=== PATIENT | male | born 1965 | race Asian ===

== ENCOUNTER 2020-03-24 08:34 | Outpatient (REF) | payer BC, SELFPAY ==
[2020-03-24 11:19] LABS: MANUAL DIFF FLAG NO
[2020-03-24 11:31] LABS: Basophils Percent Auto 0.5 % (0-2); Eosinophils Absolute Auto 0.1 X10*3/uL (0.0-0.4); Eosinophils Percent Auto 3.1 % (0-4); Hematocrit 47.6 % (42-52); Hemoglobin 15.1 g/dl (14.0-18.0); Imm Gran Abs Auto 0.01 X10*3/uL (0.00-0.03); Imm Gran Pct Auto 0.3 % (0.0-0.4); Lymphocytes Absolute Auto 1.1 X10*3/uL (1.2-4.9); Lymphocytes Percent Auto 27.9 % (20-40); Mean Corpuscular HGB Conc 31.7 g/dl (31.0-36.0); Mean Corpuscular Hemoglobin 26.7 pg (27.0-33.0); Mean Corpuscular Volume 84.2 fL (80-98); Mean Platelet Volume 9.5 fL (9.4-12.4); Monocytes Absolute Auto 0.3 X10*3/uL (0.1-1.2); Monocytes Percent Auto 8.2 % (2-11); Neutrophils Absolute Auto 2.3 X10*3/uL (2.0-8.3); Platelet Count 174 X10*3/uL (160-400); Red Blood Count 5.65 X10*6/uL (4.60-5.80); Red Cell Distribution Width 14.3 % (11.0-16.0); White Blood Count 3.9 X10*3/uL (4.8-10.8)
[2020-03-24 11:50] LABS: Glucose Urine UA NEG (NEG); Leukocyte Esterase Urine NEG (NEG); Nitrite Urine NEG (NEG); Specific Gravity - Urine 1.015 (1.005-1.025); Urine Blood TRACE (NEG); Urine Ketones NEG (NEG); Urine Protein NEG (NEG-TRACE)
[2020-03-24 11:52] LABS: Appearance Urine CLEAR; Color Urine YELLOW
[2020-03-24 11:57] LABS: Alanine Aminotransferase 25 U/L (0-40); Albumin Level 4.2 g/dL (3.5-5.0); Alkaline Phosphatase 53 U/L (39-117); Anion Gap 14 (12-20); Aspartate Amino Transferase 26 U/L (5-37); Bilirubin Total 0.7 mg/dL (0.0-1.0); Blood Urea Nitrogen 16 mg/dL (9-16); Calcium 9.1 mg/dL (8.4-10.2); Carbon Dioxide 30 mmol/L (22-29); Chloride 100 mmol/L (96-108); Cholesterol 179 mg/dL; Estimated Glomerular Filt Rate 46; Glucose Fasting 80 mg/dL (60-99); HDL Cholesterol 54 mg/dL; LDL Cholesterol Calculated 100 mg/dl; Potassium 4.3 mmol/l (3.3-5.1); Sodium 140 mmol/L (135-145); Triglycerides 125 mg/dL
[2020-03-24 12:07] LABS: RBC Urine 0-2 /HPF (0); WBC Urine 0 /HPF (0-4)
[2020-03-24 12:35] LABS: Prostate Specific Antigen 1.01 ng/mL (<0.05-4.0)
== END 2020-03-24 08:35 | disposition home or self-care (01) ==
LOC: HO.HMGCLDS 08:34
PROVIDERS: PCP Internal Medicine; Visit Provider Internal Medicine
DX: E78.00 Pure hypercholesterolemia, unspecified (principal); Z00.00 Encounter for general adult medical examination without abnormal findings; N28.9 Disorder of kidney and ureter, unspecified
CPT/HCPCS: 36415; 80053; 80061; 81001; 84153; 85025

== ENCOUNTER 2020-09-30 08:48 | Day surgery (SDC) | payer BC, SELFPAY ==
[2020-09-26 10:17] VITALS: BMI 22.8
--- NOTE | 2020-09-28 13:13 | HO.ANESPROP2 ---
Documented by User: Linh Graham 09/28/20 13:14 HPI - Anesthesia Eval Consult details Narrative: 54yo M for Colonoscopy PMFSH Past Medical History Medical History No significant past medical history Surgical History Surgical History Hx of Achilles tendon repair Hx of colonoscopy Hx of hand surgery Social History Social History Smoking Status: Former smoker Use of substances other than those prescribed or required for medical reasons: No Are you DNR?: No Advance Directives: No Advance Directives Information Provided: Yes Meds Allergies Allergy/AdvReac Type Severity Reaction Status Date / Time No Known Allergies Allergy Verified 09/30/20 08:55 Home Medications Medication Instructions Recorded Confirmed Last Taken Type multivitamin 1 tab PO DAILY 09/26/20 09/26/20 Unknown History Exam Exam Date and Time: September 28, 2020 1313 Height,Weight and Vital Signs: Height 5 ft 9 in Weight 70.307 kg Assessment and Plan Assessment Anesthesia Assessment: Chart Reviewed Documented by User: Negrita Natarajan 09/30/20 09:44 PMFSH Past Medical History Medical History No significant past medical history Surgical History Surgical History Hx of Achilles tendon repair Hx of colonoscopy Hx of hand surgery Social History Social History Smoking Status: Former smoker Use of substances other than those prescribed or required for medical reasons: No Are you DNR?: No Advance Directives: No Advance Directives Information Provided: Yes Meds Allergies Allergy/AdvReac Type Severity Reaction Status Date / Time No Known Allergies Allergy Verified 09/30/20 08:55 Home Medications Medication Instructions Recorded Confirmed Last Taken Type multivitamin 1 tab PO DAILY 09/26/20 09/26/20 Unknown History Exam Airway Mallampati Class: II TM Dist: >3cm Neck ROM: Full Assessment and Plan Assessment Anesthesia Assessment: Anesthesia Plan Discussed and Chart Reviewed Final Anesthetic Review NPO: Yes ASA Class: I Final Preanesthetic Review: No Changes in Pt Med Stat, Meds/Allgs Chart Reviewed, Consent Obtained/Reviewed and Anes Risks/Benef Reviewed Patient Risk: Low Procedure Risk: Low Assessment/Block/Sedation in SS: Assess/Block/Sedation-SS Anesthetic Plan Anesthetic Plan: MAC: Disposition: Standard PACU
[2020-09-30 09:18] VITALS: BP 132/84; PULSE 69; RESP 18; TEMP 36.2; O2SAT 97
[2020-09-30] MEDS: Lactated Ringers 1,000 ML 100 ML IVCONT (09:33)
[2020-09-30 10:52] VITALS: BP 90/51; PULSE 66; RESP 16; TEMP 36.2; O2SAT 98
--- NOTE | 2020-09-30 10:55 | P.BOP_ITS ---
Brief Operative Note Date of Service: 09/30/20 Pre-op diagnosis: Screening Post-op diagnosis: other (Prominent ICV, R/O polyp) Procedure: Colonoscopy to cecum and TI with biopsies Surgeon: Hernandez Rossi Anesthesia: MAC Was an Local Delivery Truck Driver used for this Procedure?: No Estimated blood loss (mL): 4.0 Pathology: other (A. Ileocecal valve, R/O polyp) Condition: stable Disposition: PACU
[2020-09-30 11:07] VITALS: BP 93/48; PULSE 55; RESP 16; O2SAT 96
--- NOTE | 2020-09-30 11:07 | OP_ITS ---
SURGEON: Hernandez Rossi MD INDICATIONS: The patient presents for evaluation of personal history of tubular adenomas of the colon and colorectal cancer screening. Full consent has been obtained from him for this, including risks of bleeding and perforation. PREOPERATIVE DIAGNOSIS: POSTOPERATIVE DIAGNOSIS: PROCEDURE PERFORMED: Colonoscopy to the cecum and terminal ileum with biopsies. ESTIMATED BLOOD LOSS: COMPLICATIONS: ANESTHESIA: Monitored anesthesia care. ASSISTANTS: SPECIMENS: PREOPERATIVE DIAGNOSES: Personal history of tubular adenoma of the colon and colorectal cancer screening. POSTOPERATIVE DIAGNOSES: Personal history of tubular adenoma of the colon and colorectal cancer screening, rule out ileocecal valve polyp, mild sigmoid diverticulosis, small internal hemorrhoids. DESCRIPTION OF PROCEDURE: The patient was placed in the left lateral decubitus position. The digital rectal exam revealed no abnormalities. The Olympus video pediatric colonoscope was entered into the rectum and advanced easily to the cecum. Once in the cecum, I did identify normal-appearing cecal pouch with appendiceal orifice. The entire cecum was well visualized and appeared normal. The ileocecal valve appeared somewhat prominent with some prolapsing small bowel mucosa. Overall, I felt this looked normal, but I did obtain some biopsies to rule out any component of adenomatous tissue. The terminal ileum was cannulated and appeared normal. The scope was withdrawn back in the colon. The scope was then slowly withdrawn assessing all mucosal surfaces carefully. Preparation was excellent. I did not visualize any sign of polyps, colitis, nor angiodysplasia. There was a mild amount of sigmoid diverticulosis. In the rectum, scope was retroflexed visualizing internal hemorrhoids, but no other pathology. The rectal mucosa appeared normal. The scope was straightened out and withdrawn from the patient. He tolerated the procedure well and was returned to the recovery area in stable condition. IMPRESSION: 1. Mild sigmoid diverticulosis. 2. Internal hemorrhoids. PLAN: The results of the biopsy will be checked. I would recommend a repeat colonoscopy in 5 years for further screening and surveillance. He will otherwise see me on a p.r.n. basis. MD BERNARDINO Buitrago/SARAH / [id number] MTDD
[2020-09-30 11:20] VITALS: BP 108/64; PULSE 70; RESP 16; O2SAT 99
== END 2020-09-30 12:15 | disposition home or self-care (01) ==
PROVIDERS: PCP Internal Medicine; Visit Provider Internal Medicine
PROC: 0DJD8ZZ Inspection of Lower Intestinal Tract, Via Natural or Artificial Opening Endoscopic (ICD-10-PCS; CPT 45378; principal; 2020-09-30 10:10)
DX: Z12.11 Encounter for screening for malignant neoplasm of colon (principal); Z86.010 Personal history of colon polyps; K57.30 Diverticulosis of large intestine without perforation or abscess without bleeding; K64.8 Other hemorrhoids
CPT/HCPCS: 45380; 88305

== ENCOUNTER 2020-11-03 15:27 | Outpatient (REF) | payer BC, SELFPAY ==
--- NOTE | ~2020-11-03 | US_ITS ---
EXAMINATION: US RETROPERITONEAL COMPLETE (RENAL) CLINICAL INFORMATION: Chronic kidney disease. COMPARISON: None TECHNIQUE: Real-time imaging of the kidneys and bladder. FINDINGS: RIGHT KIDNEY: 9.7 x 5.0 x 5.3 cm (SAG x AP x TRV). The kidney is normal in size, contour, and echogenicity. Renal cortical thickness is normal. No calculi or focal parenchymal lesions. No hydronephrosis. LEFT KIDNEY: 10.0 x 4.4 x 4.8 cm (SAG x AP x TRV). The kidney is normal in size, contour, and echogenicity. Renal cortical thickness is normal. No calculi or focal parenchymal lesions. No hydronephrosis. BLADDER: Well distended and normal. Bilateral ureteral jets are demonstrated. Prevoid bladder volume is 230.2 mL. Postvoid bladder volume is 15.6 mL. The prostate gland measures 5 x 4.5 2.5 cm, volume 31 mL. The liver is echogenic. US/US retroperitoneal comp IMPRESSION: Normal renal and bladder ultrasound..
== END 2020-11-03 15:28 | disposition home or self-care (01) ==
LOC: HO.US 15:27
PROVIDERS: Visit Provider Internal Medicine Hypertension Specialist
DX: N18.9 Chronic kidney disease, unspecified (principal)
CPT/HCPCS: 76770; 76775

== ENCOUNTER 2020-11-11 08:40 | Outpatient (REF) | payer BC, SELFPAY ==
[2020-11-11 09:31] LABS: MANUAL DIFF FLAG NO
[2020-11-11 09:36] LABS: Basophils Percent Auto 0.4 % (0-2); Eosinophils Absolute Auto 0.1 X10*3/uL (0.0-0.4); Hematocrit 46.6 % (42-52); Imm Gran Abs Auto 0.02 X10*3/uL (0.00-0.03); Imm Gran Pct Auto 0.4 % (0.0-0.4); Lymphocytes Absolute Auto 1.2 X10*3/uL (1.2-4.9); Lymphocytes Percent Auto 23.6 % (20-40); Mean Corpuscular HGB Conc 32.2 g/dl (31.0-36.0); Mean Corpuscular Hemoglobin 26.5 pg (27.0-33.0); Mean Corpuscular Volume 82.3 fL (80-98); Mean Platelet Volume 9.4 fL (9.4-12.4); Monocytes Absolute Auto 0.4 X10*3/uL (0.1-1.2); Monocytes Percent Auto 7.2 % (2-11); Neutrophils Absolute Auto 3.3 X10*3/uL (2.0-8.3); Neutrophils Percent Auto 66.4 % (45-73); Platelet Count 175 X10*3/uL (160-400); Red Blood Count 5.66 X10*6/uL (4.60-5.80); Red Cell Distribution Width 14.2 % (11.0-16.0)
[2020-11-11 10:14] LABS: Alanine Aminotransferase 23 U/L (0-40); Albumin Level 4.3 g/dL (3.5-5.0); Alkaline Phosphatase 60 U/L (39-117); Anion Gap 12 (12-20); Aspartate Amino Transferase 19 U/L (5-37); Bilirubin Total 0.4 mg/dL (0.0-1.0); Blood Urea Nitrogen 20 mg/dL (9-16); Carbon Dioxide 27 mmol/L (22-29); Chloride 105 mmol/L (96-108); Estimated Glomerular Filt Rate 51; Glucose Random 101 mg/dL (60-115); Potassium 4.2 mmol/L (3.3-5.1); Sodium 140 mmol/L (135-145); Total Protein 7.5 g/dL (6.5-8.0)
[2020-11-11 10:16] LABS: Creatinine Urine 154.83 mg/dL; Total Protein Urine Random < 7 mg/dL (<12)
[2020-11-11 10:27] LABS: Vitamin D 25-OH Total 35.8 ng/mL (>30)
[2020-11-11 11:14] LABS: Creatinine, mg/dL 144.32
[2020-11-11 11:16] LABS: Creatinine, mg/dL 147.45; Protein mg/dL < 7 mg/dL
[2020-11-11 13:14] LABS: Creatinine, 24Hr Urine 1.9 G/Day (1.0-2.0); Protein 24 Hr Urine < 91 mg/Day (<150); Total Volume 24 Hour Urine 1300 mL
[2020-11-11 13:15] LABS: Creatinine (CrCl) 1.46 mg/dL (0.5-1.4); Creatinine Clearance 91.1 mL/min (85-125); Creatinine, 24Hr Urine 1.9 G/Day (1.0-2.0); Total Volume 24 Hour Urine 1300 mL
[2020-11-15 13:37] LABS: Calcium (PTHI) 9.9 mg/dL (8.6-10.3); PTHI 24 pg/mL (14-64)
== END 2020-11-11 08:41 | disposition home or self-care (01) ==
LOC: HO.LAB 08:40
PROVIDERS: PCP Internal Medicine; Visit Provider Internal Medicine Hypertension Specialist
DX: N18.9 Chronic kidney disease, unspecified (principal)
CPT/HCPCS: 36415; 80053; 82306; 82570; 82575; 83970; 84156; 85025

== ENCOUNTER 2021-07-28 09:09 | Outpatient (REF) | payer BC, SELFPAY ==
[2021-07-28 10:26] LABS: Anion Gap 13 (12-20); Blood Urea Nitrogen 18 mg/dL (9-16); Calcium 10.2 mg/dL (8.4-10.2); Carbon Dioxide 29 mmol/L (22-29); Chloride 102 mmol/L (96-108); Estimated Glomerular Filt Rate 46; Potassium 4.6 mmol/L (3.3-5.1); Sodium 139 mmol/L (135-145)
[2021-07-28 10:58] LABS: Appearance Urine CLEAR; Color Urine YELLOW; Glucose Urine UA NEG (NEG); Leukocyte Esterase Urine NEG (NEG); Nitrite Urine NEG (NEG); Urine Blood NEG (NEG); Urine Ketones NEG (NEG); Urine Protein NEG (NEG-TRACE)
[2021-07-28 11:32] LABS: Creatinine Urine 137.32 mg/dL; Protein/Creatinine Ratio, Ur 0.06 (<0.2); Total Protein Urine Random 8 mg/dL (<12)
== END 2021-07-28 09:10 | disposition home or self-care (01) ==
LOC: HO.LAB 09:09
PROVIDERS: PCP Internal Medicine; Visit Provider Internal Medicine Hypertension Specialist
DX: N18.9 Chronic kidney disease, unspecified (principal)
CPT/HCPCS: 36415; 80051; 81003; 82310; 82565; 84156; 84520

== ENCOUNTER 2021-12-18 07:27 | Outpatient (REF) | payer BC, SELFPAY ==
[2021-12-18 07:43] LABS: MANUAL DIFF FLAG NO
[2021-12-18 08:09] LABS: Basophils Percent Auto 0.4 % (0-2); Eosinophils Absolute Auto 0.2 X10*3/uL (0.0-0.4); Eosinophils Percent Auto 3.1 % (0-4); Hematocrit 46.7 % (42.0-52.0); Hemoglobin 15.2 g/dl (14.0-18.0); Imm Gran Abs Auto 0.01 X10*3/uL (0.00-0.03); Imm Gran Pct Auto 0.2 % (0.0-0.4); Lymphocytes Absolute Auto 1.2 X10*3/uL (1.2-4.9); Lymphocytes Percent Auto 24.5 % (20-40); Mean Corpuscular HGB Conc 32.5 g/dl (31.0-36.0); Mean Corpuscular Hemoglobin 26.8 pg (27.0-33.0); Mean Corpuscular Volume 82.2 fL (80.0-98.0); Mean Platelet Volume 9.5 fL (9.4-12.4); Monocytes Absolute Auto 0.4 X10*3/uL (0.1-1.2); Monocytes Percent Auto 7.4 % (2-11); Neutrophils Absolute Auto 3.2 x10*3/uL (2.0-8.3); Neutrophils Percent Auto 64.4 % (45-73); Platelet Count 175 X10*3/uL (160-400); Red Blood Count 5.68 X10*6/uL (4.60-5.80); Red Cell Distribution Width 14.5 % (11.0-16.0); White Blood Count 4.9 X10*3/uL (4.8-10.8)
[2021-12-18 08:51] LABS: Alanine Aminotransferase 15 U/L (0-40); Albumin Level 4.5 g/dL (3.5-5.0); Alkaline Phosphatase 52 U/L (39-117); Anion Gap 13 (12-20); Aspartate Amino Transferase 17 U/L (5-37); Bilirubin Total 0.5 mg/dL (0.0-1.0); Blood Urea Nitrogen 27 mg/dL (9-16); Calcium 9.7 mg/dL (8.4-10.2); Carbon Dioxide 29 mmol/L (22-29); Chloride 101 mmol/L (96-108); Cholesterol 240 mg/dL; Estimated Glomerular Filt Rate 42; Glucose Fasting 90 mg/dL (60-99); HDL Cholesterol 58 mg/dL; LDL Cholesterol Calculated 145 mg/dl; Potassium 4.5 mmol/L (3.3-5.1); Sodium 138 mmol/L (135-145); Total Protein 7.3 g/dL (6.5-8.0); Triglycerides 188 mg/dL
[2021-12-18 09:02] LABS: Prostate Specific Antigen 1.27 ng/mL (<0.05-4.0); Thyroid Stimulating Hormone 1.67 uIU/mL (0.32-4.0); Vitamin D 25-OH Total 39.6 ng/mL (>30)
== END 2021-12-18 07:28 | disposition home or self-care (01) ==
LOC: HO.LAB 07:27
PROVIDERS: PCP Internal Medicine; Visit Provider Internal Medicine
DX: Z00.00 Encounter for general adult medical examination without abnormal findings (principal); Z12.5 Encounter for screening for malignant neoplasm of prostate; N28.9 Disorder of kidney and ureter, unspecified; E78.00 Pure hypercholesterolemia, unspecified; J45.20 Mild intermittent asthma, uncomplicated
CPT/HCPCS: 36415; 80053; 80061; 82306; 84153; 84443; 85025

== ENCOUNTER 2022-04-28 07:04 | Outpatient (REF) | payer BC, SELFPAY ==
[2022-04-28 07:52] LABS: Anion Gap 11 (12-20); Blood Urea Nitrogen 21 mg/dL (9-16); Carbon Dioxide 30 mmol/L (22-29); Chloride 103 mmol/L (96-108); Estimated Glomerular Filt Rate 49; Glucose Random 99 mg/dL (60-115); Potassium 4.3 mmol/L (3.3-5.1); Sodium 140 mmol/L (135-145)
[2022-04-28 09:35] LABS: Creatinine Urine 158.35 mg/dL; Protein/Creatinine Ratio, Ur 0.06 (<0.2); Total Protein Urine Random 9 mg/dL (<12)
== END 2022-04-28 07:05 | disposition home or self-care (01) ==
LOC: HO.LAB 07:04
PROVIDERS: PCP Internal Medicine; Visit Provider Internal Medicine Hypertension Specialist
DX: R79.89 Other specified abnormal findings of blood chemistry (principal)
CPT/HCPCS: 36415; 80048; 84156

== ENCOUNTER 2022-11-03 07:14 | Outpatient (REF) | payer BC, SELFPAY ==
[2022-11-03 07:38] LABS: MANUAL DIFF FLAG NO
[2022-11-03 07:51] LABS: Basophils Percent Auto 0.5 % (0-2); Eosinophils Absolute Auto 0.1 X10*3/uL (0.0-0.4); Hematocrit 44.5 % (42.0-52.0); Hemoglobin 14.3 g/dl (14.0-18.0); Imm Gran Abs Auto 0.01 X10*3/uL (0.00-0.03); Imm Gran Pct Auto 0.2 % (0.0-0.4); Lymphocytes Absolute Auto 1.3 X10*3/uL (1.2-4.9); Mean Corpuscular HGB Conc 32.1 g/dl (31.0-36.0); Mean Corpuscular Hemoglobin 26.8 pg (27.0-33.0); Mean Corpuscular Volume 83.5 fL (80.0-98.0); Mean Platelet Volume 9.3 fL (9.4-12.4); Monocytes Absolute Auto 0.3 X10*3/uL (0.1-1.2); Monocytes Percent Auto 7.9 % (2-11); Neutrophils Absolute Auto 2.5 x10*3/uL (2.0-8.3); Neutrophils Percent Auto 58.4 % (45-73); Platelet Count 152 X10*3/uL (160-400); Red Blood Count 5.33 X10*6/uL (4.60-5.80); Red Cell Distribution Width 14.6 % (11.0-16.0); White Blood Count 4.3 X10*3/uL (4.8-10.8)
[2022-11-03 08:25] LABS: Alanine Aminotransferase 16 U/L (0-40); Albumin Level 4.1 g/dL (3.5-5.0); Alkaline Phosphatase 47 U/L (39-117); Anion Gap 12 (12-20); Aspartate Amino Transferase 24 U/L (5-37); Bilirubin Total 0.7 mg/dL (0.0-1.0); Blood Urea Nitrogen 16 mg/dL (9-16); Calcium 9.8 mg/dL (8.4-10.2); Carbon Dioxide 29 mmol/L (22-29); Chloride 103 mmol/L (96-108); Cholesterol 189 mg/dL; Estimated Glomerular Filt Rate 48; Glucose Fasting 92 mg/dL (60-99); HDL Cholesterol 62 mg/dL; LDL Cholesterol Calculated 103 mg/dl; Potassium 4.1 mmol/L (3.3-5.1); Sodium 140 mmol/L (135-145); Total Protein 6.7 g/dL (6.5-8.0); Triglycerides 121 mg/dL
[2022-11-03 08:37] LABS: PSA,Total (Free>4and<10) 1.44 ng/mL (0.00-4.00)
[2022-11-03 08:44] LABS: Thyroid Stimulating Hormone 1.53 uIU/mL (0.32-4.0)
[2022-11-03 09:07] LABS: Appearance Urine Clear; Color Urine Yellow; Glucose Urine UA Negative (Negative); Leukocyte Esterase Urine Negative (Negative); Nitrite Urine Negative (Negative); PH 5.5 (5.0-9.0); Urine Blood Negative (Negative); Urine Ketones Negative (Negative); Urine Protein Negative (Neg-Trace)
== END 2022-11-03 07:15 | disposition home or self-care (01) ==
LOC: HO.LAB 07:14
PROVIDERS: PCP Internal Medicine; Visit Provider Internal Medicine
DX: Z00.00 Encounter for general adult medical examination without abnormal findings (principal); Z12.5 Encounter for screening for malignant neoplasm of prostate; E78.00 Pure hypercholesterolemia, unspecified; N28.9 Disorder of kidney and ureter, unspecified
CPT/HCPCS: 36415; 80053; 80061; 81003; 84153; 84443; 85025

== ENCOUNTER 2023-10-15 06:51 | Outpatient (REF) | payer BC, SELFPAY ==
[2023-10-15 07:04] LABS: MANUAL DIFF FLAG NO
[2023-10-15 08:10] LABS: Basophils Percent Auto 0.4 % (0-2); Eosinophils Absolute Auto 0.1 X10*3/uL (0.0-0.4); Hematocrit 44.5 % (42.0-52.0); Hemoglobin 14.5 g/dl (14.0-18.0); Imm Gran Abs Auto 0.01 X10*3/uL (0.00-0.03); Imm Gran Pct Auto 0.2 % (0.0-0.4); Lymphocytes Absolute Auto 1.2 X10*3/uL (1.2-4.9); Lymphocytes Percent Auto 25.1 % (20-40); Mean Corpuscular HGB Conc 32.6 g/dl (31.0-36.0); Mean Corpuscular Hemoglobin 27.1 pg (27.0-33.0); Mean Corpuscular Volume 83.2 fL (80.0-98.0); Monocytes Absolute Auto 0.3 X10*3/uL (0.1-1.2); Monocytes Percent Auto 6.9 % (2-11); Neutrophils Percent Auto 64.4 % (45-73); Platelet Count 169 X10*3/uL (160-400); Red Blood Count 5.35 X10*6/uL (4.60-5.80); Red Cell Distribution Width 14.8 % (11.0-16.0); White Blood Count 4.7 X10*3/uL (4.8-10.8)
[2023-10-15 08:46] LABS: Anion Gap 16 (12-20); Blood Urea Nitrogen 15 mg/dL (9-16); Calcium 9.6 mg/dL (8.4-10.2); Carbon Dioxide 27 mmol/L (22-29); Chloride 100 mmol/L (96-108); Estimated Glomerular Filt Rate 51; Glucose Random 90 mg/dL (60-115); Potassium 3.8 mmol/L (3.3-5.1); Sodium 139 mmol/L (135-145)
== END 2023-10-15 06:52 | disposition home or self-care (01) ==
LOC: HO.LAB 06:51
PROVIDERS: PCP Internal Medicine; Visit Provider Internal Medicine
DX: N28.9 Disorder of kidney and ureter, unspecified (principal)
CPT/HCPCS: 36415; 80048; 85025

== ENCOUNTER 2024-04-16 06:32 | Outpatient (REF) | payer BC, SELFPAY ==
[2024-04-16 06:48] LABS: MANUAL DIFF FLAG NO
[2024-04-16 07:27] LABS: Basophils Percent Auto 0.7 % (0-2); Eosinophils Absolute Auto 0.1 X10*3/uL (0.0-0.4); Eosinophils Percent Auto 2.2 % (0-4); Hematocrit 45.4 % (42.0-52.0); Hemoglobin 14.7 g/dl (14.0-18.0); Imm Gran Abs Auto 0.01 X10*3/uL (0.00-0.03); Imm Gran Pct Auto 0.2 % (0.0-0.4); Lymphocytes Absolute Auto 1.1 X10*3/uL (1.2-4.9); Lymphocytes Percent Auto 24.5 % (20-40); Mean Corpuscular HGB Conc 32.4 g/dl (31.0-36.0); Mean Corpuscular Hemoglobin 26.7 pg (27.0-33.0); Mean Corpuscular Volume 82.5 fL (80.0-98.0); Mean Platelet Volume 9.4 fL (9.4-12.4); Monocytes Absolute Auto 0.4 X10*3/uL (0.1-1.2); Monocytes Percent Auto 7.6 % (2-11); Neutrophils Percent Auto 64.8 % (45-73); Platelet Count 180 X10*3/uL (160-400); Red Cell Distribution Width 14.6 % (11.0-16.0); White Blood Count 4.6 X10*3/uL (4.8-10.8)
[2024-04-16 07:51] LABS: Alanine Aminotransferase 25 U/L (0-40); Albumin Level 4.2 g/dL (3.5-5.0); Alkaline Phosphatase 49 U/L (39-117); Anion Gap 14 (12-20); Aspartate Amino Transferase 26 U/L (5-37); Bilirubin Total 0.7 mg/dL (0.0-1.0); Blood Urea Nitrogen 21 mg/dL (9-16); Carbon Dioxide 29 mmol/L (22-29); Chloride 101 mmol/L (96-108); Cholesterol 220 mg/dL (<200); Estimated Glomerular Filt Rate 46; Glucose Fasting 85 mg/dL (60-99); HDL Cholesterol 61 mg/dL (>40); LDL Cholesterol Calculated 126 mg/dL (<100); Potassium 4.3 mmol/L (3.3-5.1); Sodium 140 mmol/L (135-145); Total Protein 7.1 g/dL (6.5-8.0); Triglycerides 167 mg/dL (<150)
[2024-04-16 08:00] LABS: Appearance Urine Clear; Color Urine Yellow; Glucose Urine UA Negative (Negative); Leukocyte Esterase Urine Negative (Negative); Nitrite Urine Negative (Negative); PH 5.5 (5.0-9.0); Urine Blood Negative (Negative); Urine Ketones Negative (Negative); Urine Protein Negative (Neg-Trace)
[2024-04-16 08:00] LABS: PSA,Total (Free>4and<10) 2.38 ng/mL (0.00-4.00)
[2024-04-16 08:06] LABS: Thyroid Stimulating Hormone 1.48 uIU/mL (0.32-4.0); Vitamin D 25-OH Total 44.2 ng/mL (>30)
--- OUTSIDE RECORDS SUMMARY | 2024-04-21 22:51 | XMS_ITS ---
Author Organization Hernandez Ho DO, FACP Address [address] [place], [place] [id number] Care Team Providers Care Customer Care Agent Name Role Phone Hernandez Ho Primary Care Provider ALLERGIES No Known Allergies REASON FOR REFERRAL Reason Renal insufficiency Diagnosis 1 Renal insufficiency (N28.9) Referral Organization Hernandez Mason O, FACP Referring Provider First Name Hernandez Referring Provider Last Name Vic Referring Provider Speciality Internal M edicine Referred Provider [place] Referred Provider Specialty Nephrology Referral Priority Routine REASON FOR VISIT 6 month f/u, Follow up Hypercholesterolemia MEDICATIONS Medication SIG (Take, Route, Frequency, Duration) Notes Start Date End Date Status ProAir HFA 108 (90 Base) MCG/ACT 2 puffs as needed Inhalation every 4 hrs 02/08/2016 Active Multivitamins 1 tablet Orally Once a day Active SOCIAL HISTORY Tobacco Use: Social History Observation Description Date Details (start date - stop date) Never Smoker NA - NA Sex Assigned At : Social History Observation Description Sex Assigned At Unknown Tobacco Use/Smoking Question Answer Notes Patient is a nonsmoker Additional Findings: Tobacco Non-User Cu rrent non-smoker, currently using no form of tobacco Alcohol Screen Question Answer Notes Did you have a drink contain ing alcohol in the past year? Yes How often did you have a dri nk containing alcohol in the past year? 2 to 3 times a week (3 points) How many drinks did you have on a typical day when you were drinking in the past year? 1 or 2 drinks (0 point) How often did you have 6 or more drinks on one occasion in the past year? Never (0 point) Points 3 Interpretation Negative VITAL SIGNS BMI 24.43 kg/m2 04/21/2024 Blood pressure systolic 102 mm Hg 04/21/20 24 Blood pressure diastolic 58 mm Hg 024 Height 67 in 04/21/2024 Weight 156 lbs 04/21/2024 Encounters Encounter Location Date Provider Diagnosis Hernandez Ho DO, [address] [phone] 04/21/2024 Hernandez Ho Hypercholesterolemia E78.00 and Renal insufficiency N28.9 ASSESSMENTS Encounter Date Diagnosis Assessment Notes Treatment Notes Treatment Clinical Notes 04/21/2024 Hypercholesterolemia (ICD-10 - E78.00) Low cholesterol diet 04/21/2024 Renal insufficiency (ICD-10 - N28.9) Follow up with Nephrology PLAN OF TREATMENT Treatment Notes Assessment Notes Hypercholesterolemia Low cholesterol t Renal insufficiency Follow up with Nephr ology Referrals Referral Date Details Renal insufficiency, [place] Next Appt Details Follow Up: 6 Months, Reason: H&P Provider Name:Hernandez Richmond joanne, 2024 09:45:00 AM, [address] [place] [address], [phone], Progress Notes * Examination Category Sub-Category Detail Notes General Examination GENERAL APPEARANCE: in no ac jena distress, well developed, well nourished HEAD: normocephalic, atrau matic HEART: no murmurs, regular rate and rhythm, S1, S2 normal LUNGS: clear to auscultatio n bilaterally ABDOMEN: normal, bowel sounds present, soft, nontender, nondistended SKIN: warm and dry EXTREMITIES: no edema PSYCH: alert, oriented, cog nitive function intact Consultation Request Notes Referral Date Referring Provider Referred Provider Not es 04/21/2024 Hernandez Ho Balaji Renal ins ufficiency
--- OUTSIDE RECORDS SUMMARY | 2024-04-21 22:51 | XMS_ITS ---
Author Organization Hernandez Ho DO, FACP Address [address], [place] [id number] Care Team Providers Care Activities Therapist Name Role Phone Hernandez Ho Primary Care Provider ALLERGIES No Known Allergies REASON FOR REFERRAL Reason CSE Diagnosis 1 Encounter for alejo l adult medical examination without abnormal findings (Z00.00) Referral Organization Hernandez Mason O, FACP Referring Provider First Name Hernandez Referring Provider Last Name Vic Referring Provider Speciality Internal M edicine Referred Provider Tristan Butt Referred Provider Specialty Dermatology General Notes Eliane Ledesma 02:40:01 PM EDT > Referral faxed prior to scheduling, Shonda Wiseman 11/19/2023 08:36:06 AM EDT > receipt confirmed. Dr. Butt's cotton seed culler will call patient to schedule appointment. Referral Priority Routine REASON FOR VISIT annual visit, Follow up Renal insufficiency MEDICATIONS Medication SIG (Take, Route, Frequency, Duration) [...] Interpretation Negative VITAL SIGNS BMI 24.43 kg/m2 10/22/2023 Blood pressure systolic 102 mm Hg 10/22/19 24 Blood pressure diastolic 62 mm Hg 024 Height 67 in 10/22/2023 Weight 156 lbs 10/22/2023 Encounters Encounter Location Date Provider Diagnosis Hernandez Ho , [address] [phone] 10/22/2023 Hernandez Vic Encounter for genera l adult medical examination without abnormal findings Z00.00 ; Hypercholesterolemia E78.00 and Renal insufficiency N28.9 ASSESSMENTS Encounter Date Diagnosis Assessment Notes Treatment Notes Treatment Clinical Notes 10/22/2023 Encounter for genera l adult medical examination without abnormal findings (ICD-10 - Z00.00) 10/22/2023 Hypercholesterolemia (ICD-10 - E78.00) 10/22/2023 Renal insufficiency (ICD-10 - N28.9) PLAN OF TREATMENT Medication Medication Name Sig Start Date Stop Date Notes ProAir HFA 108 (90 Base) MCG/ACT 2 puffs as needed Inhalation every 4 hrs 02/08/2016 Multivitamins 1 tablet Orally Once a day Referrals Referral Date Details Tristan SELBY Next Appt Details Follow Up: 6 Months, Reason: follow up visit,review lab work Provider Name:Hernandez Richmond joanne, 2024 09:45:00 AM, [address] [place] [address], [phone], Progress Notes * Examination Category Sub-Category Detail Notes General Examination GENERAL APPEARANCE: well dev eloped, well nourished, in no acute distress HEAD: normocephalic, atrau matic EYES: sclera non-icteric NECK/THYROID: neck supple, full ra nge of motion, no cervical lymphadenopathy, thyroid normal, no carotid bruit HEART: regular rate and rhy thm, S1, S2 normal, no murmurs CHEST: normal LUNGS: clear to auscultatio n bilaterally ABDOMEN: soft, nontender, non distended, bowel sounds present, normal NEUROLOGIC: nonfocal, motor stre ngth normal upper and lower extremities, sensory exam intact SKIN: warm and dry EXTREMITIES: no edema PERIPHERAL PULSES: 2+ dorsalis pedis, 2 + posterior tibial MALE GENITOURINARY no hernia, no penile lesions or discharge, no testicular mass, testes descended bilaterally PSYCH: alert, oriented, cog nitive function intact, cooperative with exam, good eye contact, judgement and insight good History and Physical Notes * HPI (History of Present Illness) Category Sub-Category Detail Notes Depression Screening PHQ-9 Little inte rest or pleasure in doing things: Not at all Feeling down, depressed, or hopeless: No t at all Trouble falling or staying asleep, or sl eeping too much: Not at all Feeling tired or having little energy: N ot at all Poor appetite or overeating: Not at all Feeling bad about yourself o r that you are a failure, or have let yourself or your family down: Not at all Trouble concentrating on thi ngs, such as reading the newspaper or watching television: Not at all Moving or speaking so slowly that other people could have noticed; or the opposite, being so fidgety or restless that you have been moving around a lot more than usual: Not at all Thoughts that you would be b joseph off or of hurting yourself in some way: Not at all Total Score: 0 Interpretation and Intervention Depression Michaele misael Findings: Negative Follow-Up for Depression: : Review of PH Q-9 found negative result; no follow-up needed Fall Risk Fall History Have you had two or more fal ls in the past year?: No Have you had any falls with injury in th e past year?: No Fall Risk Assessment:: No falls in the p ast year Communication Needs [facility] Communication Needs - [facility] aring Impairment?: No Vision Impairment?: Yes wears glasses/co ntact lenses Cognitive Impairment?: No SDOH Questions SDOH Questions In the past year have you been worried about losing your housing?: No In the past year have you or any family members you live with been unable to get any of the following when it was really needed? Check all that apply:: None Consultation Request Notes Referral Date Referring Provider Referred Provider Not es 10/22/2023 Hernandez Ho Glenn CSE
--- OUTSIDE RECORDS SUMMARY | 2024-04-21 22:52 | XMS_ITS ---
Author Organization Hernandez oH DO, FACP Address [address] [place] [id number] Care Team Providers Care Supervisor Dyer Name Role Phone Hernandez Ho Primary Care Provider REASON FOR VISIT physical Encounters Encounter Location Date Provider Diagnosis Hernandez Ho DO, [facility] [address] [place] [phone] 09/17/2023 Hernandez Ho PLAN OF TREATMENT Next Appt Details Provider Name:Hernandez rubio, 2024 09:45:00 AM, [address] [place] [address], [phone],
--- OUTSIDE RECORDS SUMMARY | 2024-04-21 22:52 | XMS_ITS | Patient Health Record ---
Author Organization Hernandez Ho DO, FAC Address [address], [place] [id number] Care Team Providers Care Recoater Name Role Phone Hernandez Ho Primary Care Provider ALLERGIES No Known Allergies RESULTS Component Value Reference Range Notes Complete Blood Count Auto Di ff Reviewed date:10/15/2023 10:34:36 AM Interpretation:Abnormal Performing Lab:[facility], [address] [place] [phone] Notes/Report: White Blood Count 4.7 4.8-10.8 X10*3/uL Red Blood Count 5.35 4.60-5.80 X10*6/uL Hemoglobin 14.5 14.0-18.0 g/dl Hematocrit 44.5 42.0-52.0 % Mean Corpuscular Volume 83.2 80.0-98.0 fL Mean Corpuscular Hemoglobin 27.1 27.0-33.0 pg Mean Corpuscular HGB Conc 32.6 31.0-36.0 g/dl Red Cell Distribution Width 14.8 11.0-16.0 % Platelet Count 169 160-400 X10*3/uL Mean Platelet Volume 10.0 9.4-12.4 fL Neutrophils Percent Auto 64.4 45-73 % Imm Gran Pct Auto 0.2 0.0-0.4 % Lymphocytes Percent Auto 25.1 20-40 % Monocytes Percent Auto 6.9 2-11 % Eosinophils Percent Auto 3.0 0-4 % Basophils Percent Auto 0.4 0-2 % NRBC Pct Auto 0.0 0.0-0.2 /100WBC Neutrophils Absolute Auto 3.0 2.0-8.3 x10*3/u L Imm Gran Abs Auto 0.01 0.00-0.03 X10*3/uL Lymphocytes Absolute Auto 1.2 1.2-4.9 X10*3/u L Monocytes Absolute Auto 0.3 0.1-1.2 X10*3/uL Eosinophils Absolute Auto 0.1 0.0-0.4 X10*3/u L Basophils Absolute Auto 0.0 0.0-0.2 X10*3/uL NRBC Abs Auto 0.000 0.0-0.012 X10*3/uL Basic Metabolic Panel Reviewed date:10/15/2023 10:34:36 AM Interpretation:Abnormal Performing Lab:[facility], [address] [place] [phone] Notes/Report: Sodium 139 135-145 mmol/L Potassium 3.8 3.3-5.1 mmol/L Chloride 100 96-108 mmol/L Carbon Dioxide 27 22-29 mmol/L Anion Gap 16 12-20 Blood Urea Nitrogen 15 9-16 mg/dL Creatinine 1.44 0.5-1.4 mg/dL Estimated Glomerular Filt Rate 51 NOTE: For -Lao individuals, multiply the result by 1.210. Chronic Kidney Disease: Estimated GFR < 60 mL/min/1.73m2 Severe Kidney Disease: Estimated GFR < 15 mL/min/1.73m2 Glucose Random 90 60-115 mg/dL Calcium 9.6 8.4-10.2 mg/dL Complete Blood Count Auto Di ff Reviewed date:04/16/2024 12:18:03 PM Interpretation:Abnormal Performing Lab:[facility], [address] [place] [phone] Notes/Report: White Blood Count 4.6 4.8-10.8 X10*3/uL Red Blood Count 5.50 4.60-5.80 X10*6/uL Hemoglobin 14.7 14.0-18.0 g/dl Hematocrit 45.4 42.0-52.0 % Mean Corpuscular Volume 82.5 80.0-98.0 fL Mean Corpuscular Hemoglobin 26.7 27.0-33.0 pg Mean Corpuscular HGB Conc 32.4 31.0-36.0 g/dl Red Cell Distribution Width 14.6 11.0-16.0 % Platelet Count 180 160-400 X10*3/uL Mean Platelet Volume 9.4 9.4-12.4 fL Neutrophils Percent Auto 64.8 45-73 % Imm Gran Pct Auto 0.2 0.0-0.4 % Lymphocytes Percent Auto 24.5 20-40 % Monocytes Percent Auto 7.6 2-11 % Eosinophils Percent Auto 2.2 0-4 % Basophils Percent Auto 0.7 0-2 % NRBC Pct Auto 0.0 0.0-0.2 /100WBC Neutrophils Absolute Auto 3.0 2.0-8.3 x10*3/u L Imm Gran Abs Auto 0.01 0.00-0.03 X10*3/uL Lymphocytes Absolute Auto 1.1 1.2-4.9 X10*3/u L Monocytes Absolute Auto 0.4 0.1-1.2 X10*3/uL Eosinophils Absolute Auto 0.1 0.0-0.4 X10*3/u L Basophils Absolute Auto 0.0 0.0-0.2 X10*3/uL NRBC Abs Auto 0.000 0.0-0.012 X10*3/uL Urinalysis Reviewed date:04/16/2024 12:18:03 PM Interpretation:Negative Performing Lab:[facility], [address] [place] [phone] Notes/Report: Color Urine Yellow Appearance Urine Clear PH 5.5 5.0-9.0 Glucose Urine UA Negative Negative mg/dL Urine Blood Negative Negative Specific Burnham - Urine 1.020 1.005-1.025 Urine Protein Negative Neg-Trace mg/dL Urine Ketones Negative Negative mg/dL Nitrite Urine Negative Negative Leukocyte Esterase Urine Negative Negative Comprehensive Kimberly. Panel Fa st Reviewed date:04/16/2024 12:19:48 PM Interpretation:Abnormal Performing Lab:[facility], [address] [place] [phone] Notes/Report: Sodium 140 135-145 mmol/L Potassium 4.3 3.3-5.1 mmol/L Chloride 101 96-108 mmol/L Carbon Dioxide 29 22-29 mmol/L Anion Gap 14 12-20 Blood Urea Nitrogen 21 9-16 mg/dL Creatinine 1.56 0.5-1.4 mg/dL Estimated Glomerular Filt Rate 46 Chronic Kidney Disease: Estimated GFR < 60 mL/min/1.73m2 Severe Kidney Disease: Estimated GFR < 15 mL/min/1.73m2 Glucose Fasting 85 60-99 mg/dL Calcium 10.0 8.4-10.2 mg/dL Bilirubin Total 0.7 0.0-1.0 mg/dL Aspartate Amino Transferase 26 5-37 U/L Alanine Aminotransferase 25 0-40 U/L Total Protein 7.1 6.5-8.0 g/dL Albumin Level 4.2 3.5-5.0 g/dL Alkaline Phosphatase 49 39-117 U/L Lipid Panel Reviewed date:04/16/2024 12:18:03 PM Interpretation:Normal Performing Lab:[facility], [address] [place] [phone] Notes/Report: Triglycerides 167 <150 mg/dL Desirable Triglyceride: less than 150 mg/dL Borderline High Triglyceride 150-199 mg/dL High Triglyceride: 200-499 mg/dL Very High Triglyceride: greater than or equal to 5OO mg/dL Cholesterol 220 <200 mg/dL Desirable Cholesterol: less than 200 mg/dL Borderline High Cholesterol: 200-239 mg/dL High Cholesterol: greater than 239 mg/dL LDL Cholesterol Calculated 126 <100 mg/dL Desirable LDL: less than 100 mg/dL Near Optimal/Above Optimal LDL: 110-129 mg/dL Borderline High LDL: 130-159 mg/dL High LDL: 160-189 mg/dL Very High LDL: greater than or equal to 190 mg/dL HDL Cholesterol 61 >40 mg/dL Desirable HDL: greater than 40 mg/dL Note: This HDL assay may give artificially low results in patients with liver disease. PSA,Total (Free>4and<10) Reviewed date:04/16/2024 12:18:03 PM Interpretation:Normal Performing Lab:[facility], [address] [place] [phone] Notes/Report: PSA,Total (Free>4and<10) 2.38 0.00-4.00 ng/mL A Free PSA was not performed: The percentage of Free PSA can be used to enhance the differentiation of prostate cancer from benign prostatic disease in subjects whose PSA levels are between 4.0 and 10.0 ng/mL. For subjects whose PSA levels are below 4.0 or above 10.0 ng/mL, the risk of prostate cancer is determined on the basis of the PSA alone. Therefore the % Free PSA is recommended only for those subjects whose PSA levels are between 4.0 and 10.0 ng/mL. PSA methodology: St[employer] i Chemiluminescent Microparticle Immunoassay (CMIA) Vitamin D 25-OH Total Reviewed date:04/16/2024 12:18:03 PM Interpretation:Normal Performing Lab:[facility], [address] [place] [phone] Notes/Report: Vitamin D 25-OH Total 44.2 >30 ng/mL Health Based Reference Values* < 20 ng/mL Deficient 20-30 ng/mL Insufficient > 30 ng/mL Sufficient *Mihai WHITLEY. N Engl J Med. 2007;357:266-280 Care must be taken in interpreting Vitamin D results from different laboratories and methodologies. Published data demonstrated that results from patients undergoing hemodialysis may show a negative bias when tested with various automated 25-OH vitamin D assays when compared to LC-MS/MS. When testing samples from patients whose predominant form of Vitamin D is Vitamin D2, such as patients receiving Vitamin D2 supplementation, results that are subtherapeutic should be confirmed with another method such as LC-MS/MS. Thyroid Stimulating Hormone Reviewed date:04/16/2024 12:18:03 PM Interpretation:Normal Performing Lab:[facility], [address] [place] [phone] Notes/Report: Thyroid Stimulating Hormone 1.48 0.32-4.0 uIU/ mL TSH 3rd Generation ([employer] [employer]) REASON FOR REFERRAL Reason CSE Diagnosis 1 Encounter for genera l adult medical examination without abnormal findings (Z00.00) Referral Organization Hernandez Gomez FACP Referring Provider First Name Hernandez Referring Provider Last Name Vic Referring Provider Speciality Internal edicine Referred Provider Tristan Butt Referred Provider Specialty Dermatology General Notes Page,Eliane 02:40:01 PM EDT > Referral faxed prior to scheduling, Shonda Wiseman 11/19/2023 08:36:06 AM EDT > receipt confirmed. Dr. Butt's admin secretary will call patient to schedule appointment. Referral Priority Routine Reason Renal insufficiency Diagnosis 1 Renal insufficiency (N28.9) Referral Organization Hernandez Gomez FACP Referring Provider First Name Hernandez Referring Provider Quinten Name Vic Referring Provider Speciality Internal edicine Referred Provider Scar Hill Referred Provider Specialty Nephrology Referral Priority Routine MEDICATIONS Medication SIG (Take, Route, Frequency, Duration) Notes Start Date End Date Status ProAir HFA 108 (90 Base) MCG/ACT 2 puffs as needed Inhalation every 4 hrs 02/08/2016 Active Multivitamins 1 tablet Orally Once a day Active IMMUNIZATIONS Vaccine Route Administration Date Status Comme nts H1N1 Unknown 08/04/2009 Administered Td (adult) Unknown 04/08/2006 Administered Influenza IM Intramuscular 02/09/2013 Administered COVID-19 Pfizer BioNTech Unknown 10/03/2020 Administere d COVID-19 Pfizer BioNTech Unknown 10/24/2020 Administere d Influenza Unknown 07/24/2017 Refused Influenza Unknown 07/29/2018 Refused Influenza Unknown 03/24/2019 Refused SOCIAL HISTORY Tobacco Use: Social History Observation [...] Never (0 point) Points 3 Interpretation Negative PROBLEMS Problem Type ICD Code Onset Dates Problem Status W/U Status Risk SNOMED Code Notes Problem Renal insufficiency (N28.9) Active confirmed 221308593 Problem Hypercholesterolemia (E78.00) Active confirmed 68303233 VITAL SIGNS Blood pressure diastolic 58 mm Hg 04/21/2024 Height 67 in 04/21/2024 Blood pressure systolic 102 mm Hg 04/21/2024 Weight 156 lbs 04/21/2024 BMI 24.43 kg/m2 04/21/2024 Encounters Encounter Location Date Provider Diagnosis Hernandez Ho DO, [facility] [address], [place] [id number] 09/17/2023 Hernandez Ho DO, [facility] [address], [place] [id number] 10/22/2023 Hernandez Ho Encounter for genera l adult medical examination without abnormal findings Z00.00 ; Hypercholesterolemia E78.00 and Renal insufficiency N28.9 Hernandez Ho DO, FACP [address], [place] [phone] 04/21/2024 Hernandez Ho Hypercholesterolemia E78.00 and Renal insufficiency N28.9 ASSESSMENTS Encounter Date Diagnosis Assessment Notes Treatment Notes Treatment Clinical Notes 10/22/2023 Encounter for genera l adult medical examination without abnormal findings (ICD-10 - Z00.00) 10/22/2023 Hypercholesterolemia (ICD-10 - E78.00) 04/21/2024 Renal insufficiency (ICD-10 - N28.9) Follow up with Nephrology 04/21/2024 Hypercholesterolemia (ICD-10 - E78.00) Low cholesterol diet 10/22/2023 Renal insufficiency (ICD-10 - N28.9) PLAN OF TREATMENT Next Appt Details Provider Name:Hernandez Richmond joanne, 2024 09:45:00 AM, [address] [place] [address], [phone], Insurance Providers Payer Name Payer Address Payer Phone Subscriber Number Group Number Insured Name Patient Relationship to Insured Coverage Start Date Coverage End Date [facility] [address] [place], [place] [id number] Michael Shepherd Self - patient is the insured MEDICAL (GENERAL) HISTORY Medical History History ICD Code Zenker's diverticulum dysphagia gastroesophageal reflux disease (GERD) obstructive airways disease allergies with allergic asthma 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
--- OUTSIDE RECORDS SUMMARY | 2024-04-21 22:52 | XMS_ITS | Patient Health Record ---
Author Organization [facility] Address [address] [place] [address] Care Team Providers Care Armhole Raiser Lockstitch Name Role Phone Hernandez Ho DO Primary Care Provider Unavail able Hernandez Rossi Unavailable [phone] REASON FOR REFERRAL No Information MEDICATIONS Medication SIG (Take, Route, Fr equency, Duration) Notes Start Date End Date Status Multi Vitamin/Minerals Orally Active IMMUNIZATIONS Vaccine Route Administration Date Status Comme nts Influenza Unknown 07/28/2020 Refused SOCIAL HISTORY Sex Assigned At : Social History Observation Description Sex Assigned At Unknown PROBLEMS Problem Type ICD Code Onset Dates Problem Status W/U Status Risk SNOMED Code Notes Problem Encounter for screening for malignant neoplasm of colon (Z12.11) Active confirmed Screening for malignant neoplasm of colon (839617234) Problem History of adenomatous polyp of colon (Z86.010) Active confirmed History of adenomatous polyp of colon (430660079) Problem Preprocedural examination (Z01.818) Active confirmed Preprocedural examination (924821756783767 ) PLAN OF TREATMENT Pending Test Test Name Order Date Pathology 09/30/2020 Future Test Test Name Order Date COLONOSCOPY 07/27/2014 COLONOSCOPY 07/28/2020 Insurance Providers Payer Name Payer Address Payer Phone Subscriber Number Group Number Insured Name Patient Relationship to Insured Coverage Start Date Coverage End Date [facility] [employer] [address] [place] [address] [id number] CHANG FRIEND Self - patient is the insured MEDICAL (GENERAL) HISTORY Medical History History ICD Code Denies ID,DM,CVA,Lung disease,renal dise ase 2mm Zenker's Diverticulum seen on a Sammy um swallow in 2009--asymptomatic Colonoscopy 07/2014 with a small tubular adenoma removed Surgical History Surgery Date(Month/Year) Hand surgery-right 1968,1969,1971 Achilles tendon repair-right 2004
== END 2024-04-16 06:33 | disposition home or self-care (01) ==
LOC: HO.LAB 06:32
PROVIDERS: PCP Internal Medicine; Visit Provider Internal Medicine
DX: Z00.00 Encounter for general adult medical examination without abnormal findings (principal); Z12.5 Encounter for screening for malignant neoplasm of prostate; E78.00 Pure hypercholesterolemia, unspecified; N28.9 Disorder of kidney and ureter, unspecified
CPT/HCPCS: 36415; 80053; 80061; 81003; 82306; 84153; 84443; 85025

== ENCOUNTER 2024-07-14 11:45 | Outpatient (AMB) | payer BC, SELFPAY ==
--- NOTE | 2024-07-14 11:46 | MHC.PC.OV ---
Vital Signs 07/14/24 11:53 Height 5 ft 8.25 in Weight 156 lb BMI 23.5 BP 115/64 Blood Pressure Location Rt brachial Pulse 64 Pulse Source Pulse Oximeter Temp 97.3 F Pulse Oximetry (%) 98 Intake Visit Reasons: cold Intake Note: chills, coughing, shortness of breath, wheezing Allergies No Known Allergies Allergy (Verified 07/14/24 12:18) Medication List - Last Reconciled 07/14/24 by Yuli Navarro PA-C albuterol sulfate 90 mcg/actuation 2 puffs inhalation Q4-6H PRN multivitamin 1 tab PO DAILY PFSH Medical History (Updated 07/14/24 @ 12:19 by Yuli Navarro PA-C) Bronchitis Renal insufficiency Tubular adenoma Mild hypercholesterolemia Congenital abnormalities Mild persistent allergic asthma Obstructive airway disease GERD (gastroesophageal reflux disease) Dysphagia Zenkers diverticulum No significant past medical history Surgical History Hx of hand surgery Hx of Achilles tendon repair Hx of colonoscopy (~07/2014) Physical exam (Primary Care) Vital Signs: Last Vital Signs Temp 97.3 F 07/14/24 11:53 Pulse 64 07/14/24 11:53 BP 115/64 07/14/24 11:53 Pulse Ox 98 07/14/24 11:53 BMI result Body Mass Index 23.5 Coding Level of Care Code New Pt Level 4 (39993) Diagnoses Bronchitis J40 Assessment & Plan Assessment & Plan (1) Bronchitis: Code(s): J40 - Bronchitis, not specified as acute or chronic Category: Medical Plan: Will prescribe Augmentin, prednisone, albuterol inhaler and cough medicine with instructions return if any new or worsening symptoms. H&P not consistent with pneumonia. Will continue to monitor. Plan Plan The management of the patient's condition includes a diagnosis of bacterial bronchitis with asthmatic features, warranting an antibiotic regimen of Augmentin, supplemented by albuterol inhalation therapy to address airway narrowing. Additionally, prednisone will be administered to attenuate airway inflammation, contributing to symptomatic exacerbations during nocturnal hours. A cough suppressant with codeine is prescribed to facilitate more restful sleep, with the advisory to restrict its use to evening hours to prevent grogginess. The patient is encouraged to utilize a probiotic to counteract potential antibiotic-induced diarrhea. The importance of completing at least seven days of the prescribed antibiotic course is emphasized if the entire course cannot be completed. A return to the clinic is encouraged for further evaluation if symptoms persist or worsen. Medications: New amoxicillin-pot clavulanate 875-125 mg 1 tab PO BID 10 days 20 tabs 0RF prednisone 40 mg (2 x 20 mg) PO DAILY 5 days 10 tabs 0RF codeine-guaifenesin 10-100 mg/5 mL 5 mL PO Q6H PRN 120 mL 0RF cough albuterol sulfate 90 mcg/actuation 1 inh inhalation QID PRN 6.7 grams 0RF shortness of breath or wheezing Patient Instructions: Patient Instructions - Complete the prescribed course of antibiotics; aim for at least 7 days if unable to take all 10 days. - Use albuterol inhaler as directed for relief of respiratory symptoms; ensure you have an inhaler refill. - Administer prednisone to manage airway inflammation; follow the dosing schedule. - Utilize Robitussin with codeine only at nighttime to aid sleep; avoid using it with alcohol. - Incorporate a probiotic while taking antibiotics. - Maintain hydration and nutrition. - Follow up if symptoms do not improve or worsen. - Continue asthma management and monitor for any exacerbation signs. Scribe Plan - Not visible on output: History of Present Illness The patient is a 58-year-old male presenting with respiratory symptoms, including a persistent cough with sputum and shortness of breath. Onset of symptoms was on Saturday, which include chills and nocturnal cough disrupting sleep. The patient has a history of asthma and previously used an inhaler, although not recently. The presentation is consistent with bacterial bronchitis, with the patient reporting improvement from the worst symptoms experienced over the weekend. Despite cywg-ccd-ydzoyri treatment with DayQuil, symptoms persist with shortness of breath and wheezing noted, particularly during nocturnal exacerbation, warranting the exploration of additional therapeutic measures. 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 - Lifestyle: Reports an unremarkable work attendance history related to illness, evidencing functional well-being. - Nutrition: The patient maintains three meals daily but notes a mild reduction in appetite. Review of Systems - Respiratory: Reports shortness of breath, cough with phlegm. - Gastrointestinal: Denies nausea, vomiting, or changes in bowel habits. - Integumentary: Denies rashes. - Musculoskeletal: Reports intermittent chills. - Appetite: Notes mild reduction but sustains adequate intake. Physical Exam Appearance: Alert. Oriented X3. No acute distress. Head: Normal external exam. Normocephalic. Atraumatic. Eyes: Pupils are equal, round, and reactive to light. Extraocular movements intact. Conjunctiva and sclera normal. Eyelids normal. Ears: External auditory canal normal. Tympanic membranes normal. Right ear felt a little plugged but not painful. Throat: Pharynx normal. Uvula midline. Moist mucous membranes. Throat doesn't hurt. Neck: Normal inspection. Neck supple. Full range of motion. No adenopathy. Thyroid Normal. No meningeal signs. No neck mass noted. Cardiovascular: Normal heart rate and rhythm. Heart sound normal. No murmurs noted. Pulses normal throughout. Respiratory: No respiratory distress. Painless inspiration. Breath sounds normal. Wheezing noted with cough and shortness of breath. No accessory muscle usage noted or decreased air movement noted. Back: Full range of motion noted. Skin: Skin warm and dry. Normal skin color. Normal skin turgor. No rashes/lesions/lacerations noted. Extremities: Extremities exhibit normal range of motion. Extremities nontender. Neuro: Oriented X 3. No motor deficit. No sensory deficit. Reflexes normal. Plan The management of the patient's condition includes a diagnosis of bacterial bronchitis with asthmatic features, warranting an antibiotic regimen of Augmentin, supplemented by albuterol inhalation therapy to address airway narrowing. Additionally, prednisone will be administered to attenuate airway inflammation, contributing to symptomatic exacerbations during nocturnal hours. A cough suppressant with codeine is prescribed to facilitate more restful sleep, with the advisory to restrict its use to evening hours to prevent grogginess. The patient is encouraged to utilize a probiotic to counteract potential antibiotic-induced diarrhea. The importance of completing at least seven days of the prescribed antibiotic course is emphasized if the entire course cannot be completed. A return to the clinic is encouraged for further evaluation if symptoms persist or worsen. Patient was informed and verbally consented to the use of an ambient scribe for clinic note documentation during this visit. Discussion Notes I discussed with the patient the likely diagnosis of bacterial bronchitis with a potential asthmatic exacerbation and outlined the treatment plan. Benefits and administration of antibiotics were explained, highlighting the need for probiotic support to counter potential dysbiosis. We reviewed the use of albuterol inhaler and prednisone to manage bronchoconstriction, particularly nocturnal symptomatology. The necessity for finishing the antibiotic regimen was emphasized, ensuring the patient's understanding of its importance for full recovery. We agreed on cautionary measures regarding codeine use to ensure uninhibited alertness upon awakening. Follow-up and recognition of symptom persistence or worsening were discussed to clarify the anticipated clinical course and recovery. Consent for all discussed treatments was obtained. Patient Instructions - Complete the prescribed course of antibiotics; aim for at least 7 days if unable to take all 10 days. - Use albuterol inhaler as directed for relief of respiratory symptoms; ensure you have an inhaler refill. - Administer prednisone to manage airway inflammation; follow the dosing schedule. - Utilize Robitussin with codeine only at nighttime to aid sleep; avoid using it with alcohol. - Incorporate a probiotic while taking antibiotics. - Maintain hydration and nutrition. - Follow up if symptoms do not improve or worsen. - Continue asthma management and monitor for any exacerbation signs.
[2024-07-14 11:53] VITALS: BP 115/64; PULSE 64; TEMP 36.3; O2SAT 98; BMI 23.5
--- OUTSIDE RECORDS SUMMARY | 2024-07-14 14:56 | XMS_ITS | Encounter Summary ---
Author Organization [facility] Address [address] [address] Phone Care Team Providers Care Sterilization Technician Name Role Phone Hernandez Ho DO Primary Care Provider Encounter Details Date Type Department Care Team (Late Contact Info) Description 07/10/2024 Telephone [facility] [address] [phone] Akin Cruz MD [facility] [address] [phone] Social History Tobacco Use Types Packs/Day Years Used Date Smoking Tobacco: Never Smokeless Tobacco: Never Sex and Gender Information Value Date Recorded Sex Assigned at Not on file Legal Sex Male 11:55 AM EST Gender Identity Not on file Sexual Orientation Not on file documented as of this encounter Miscellaneous Notes * Telephone Encounter - Akin Cruz MD - 07/10/2024 11:40 PM EST Had discussed getting 24 hr cr clearance He is yet to get it done. Please remind patient documented in this encounter Plan of Treatment Upcoming Encounters Date Type Department Care Team (Late Contact Info) Description 07/01/2025 4:30 PM EST Office Visit [facility] [address] [place] [address] Akin Cruz MD [facility] [address] [phone] documented as of this encounter Visit Diagnoses Not on filedocumented in this encounter Care Teams Sterilization Technician Relationship Specialty Start Date End Date Hernandez Ho DO [address] [place] [address] PCP - General Internal Medicine 05/27/24 documented as of this encounter
--- OUTSIDE RECORDS SUMMARY | 2024-07-14 14:56 | XMS_ITS | Clinical Summary ---
Author Organization [facility] [address] [place] [phone] Phone Care Team Providers Care Waste Machine Offbearer Name Role Phone Vic Hernandez Lakhani Primary Care Provider Allergies No known active allergies Medications No known medications Active Problems Problem Noted Date Diagnosed Date Encounter for other preprocedural examination Screening for malignant neoplasm of colon 2021 History of adenomatous polyp of colon 08/10/2021 Encounters Date Type Department Care Team Description 07/10/2024 Telephone [facility] [address] [place] [address] Akin Cruz MD 06/25/2024 4:30 PM EST Office Visit [facility] [address] [place] [phone] Akin Cruz MD Serum creatinine above reference range (Primary Dx) from Last 3 Months Social History Tobacco Use Types Packs/Day Years Used Date Smoking Tobacco: Never Smokeless Tobacco: Never Sex and Gender Information Value Date Recorded Sex Assigned at Not on file Legal Sex Male 11:55 AM EST Gender Identity Not on file Sexual Orientation Not on file Last Filed Vital Signs Vital Sign Reading Time Taken Comments Blood Pressure 104/72 06/25/2024 4:34 PM EST Pulse 72 06/25/2024 4:34 PM EST Temperature - - Respiratory Rate - - Oxygen Saturation 97% 06/25/2024 4:34 PM EST Inhaled Oxygen Concentration - - Weight 70.8 kg (156 lb) 06/25/2024 4:34 PM EST Height 175.3 cm (5' 9 ) 09/03/2022 4:22 PM EDT Body Mass Index 23.04 09/03/2022 4:22 PM EDT Plan of Treatment Upcoming Encounters Date Type Department Care Team (Late st Contact Info) Description 07/01/2025 4:30 PM EST Office Visit [facility] [address] [place] [address] Akin Cruz MD [address] [facility] [address] [place] [address] Health Maintenance Due Date Last Done Comments Pneumococcal Vaccine: Pediat rics (0 to 5 Years) and At-Risk Patients (6 to 64 Years) (1 of 2 - PCV) 10/12/1973 Hepatitis B Vaccine (1 of 3 - 19+ 3-dose series) 10/12 Colorectal Cancer Screening: Annual FOBT 10/12/2016 Colorectal Cancer Screening: Colonoscopy 10/12/2016 Colorectal Cancer Screening: Sigmoidoscopy 10/12/2016 Influenza Vaccine (#1) 2024 Insurance [facility] Care Teams Waste Machine Offbearer Relationship Specialty Start Date End Date Hernandez Ho DO [address] [place] [address] PCP - General Internal Medicine 05/27/24
--- OUTSIDE RECORDS SUMMARY | 2024-07-14 14:56 | XMS_ITS | Patient Health Record ---
Author Organization [facility] Address [address] [place] [address] Care Team Providers Care Protective Signal Installer Name Role Phone Vic (RETIRED) Hernandez CARL Primary Care Provid er Unavailable Hernandez Rossi Unavailable [phone] REASON FOR REFERRAL No Information MEDICATIONS Medication [...] confirmed Screening for malignant neoplasm of colon (988673327) Problem History of adenomatous polyp of colon (Z86.010) Active confirmed History of adenomatous polyp of colon (404905640) Problem Preprocedural examination (Z01.818) Active confirmed Preprocedural examination (817630626960574 ) PLAN OF TREATMENT Pending Test Test Name Order Date Pathology 09/30/2020 Future Test Test Name Order Date COLONOSCOPY 07/27/2014 COLONOSCOPY 07/28/2020 Insurance Providers Payer Name Payer Address Payer Phone Subscriber Number Group Number Insured Name Patient Relationship to Insured Coverage Start Date Coverage End Date [facility] [employer] PROF[employer]AL CLAIMS [address] [place] [address] [id number] CHANG FRIEND Self - patient is the insured MEDICAL (GENERAL) HISTORY Medical History History ICD Code Denies MO,DM,CVA,Lung disease,renal dise ase 2mm Zenker's Diverticulum seen on a Sammy um swallow in 2009--asymptomatic Colonoscopy 07/2014 with a small tubular adenoma removed Surgical History Surgery Date(Month/Year) Hand surgery-right 1968,1969,1971 Achilles tendon repair-right 2004
--- OUTSIDE RECORDS SUMMARY | 2024-07-14 14:56 | XMS_ITS | Encounter Summary ---
Author Organization [facility] Address [address] [address] Phone Care Team Providers Care Check Grader Name Role Phone Hernandez Ho Primary Care Provider [phone] Reason for Visit * Reason Comments Serum creatinine above reference range Encounter Details Date Type Department Care Team ([facility] Contact Info) Description 06/25/2024 4:30 PM EST Office Visit [facility] [address] [place] [address] Akin Cruz MD [address] [phone] Serum creatinine above reference range (Primary Dx) Social History Tobacco Use Types Packs/Day Years Used Date Smoking Tobacco: Never Smokeless Tobacco: Never Sex and Gender Information Value Date Recorded Sex Assigned at Not on file Legal Sex Male 11:55 AM EST Gender Identity Not on file Sexual Orientation Not on file documented as of this encounter Last Filed Vital Signs Vital Sign Reading Time Taken Comments Blood Pressure 104/72 06/25/2024 4:34 PM EST Pulse 72 06/25/2024 4:34 PM EST Temperature - - Respiratory Rate - - Oxygen Saturation 97% 06/25/2024 4:34 PM EST Inhaled Oxygen Concentration - - Weight 70.8 kg (156 lb) 06/25/2024 4:34 PM EST Height - - Body Mass Index 23.04 09/03/2022 4:22 PM EDT documented in this encounter Progress Notes * Akin Cruz MD - 06/25/2024 4:30 PM EST Images from the original note were not included. Patient Name: Michael Shepherd, Male Date of : 1965, 58 y.o. Date: History of Present Illness Mr. Michael Shepherd is a 58 y.o.-year-old male with a h/o elevated creatinine In 2019, creatinine was 1.45 mg/dL and in 2019, creatinine was 1,6 mg/dL No edema. No rash Repeat creatinine was 1.47 and no proteinuria Today - Last lab work done in April 2024 with in [facility] - Creatinine level was high at 1.5 in April 2024. - Previous creatinine level was 1.46 in 2020, with a normal creatinine clearance test. - No history of taking creatine supplements. - Engages in low-impact fitness classes, such as core training and Pilates, 3-4 times a week. Doesnot lift weights or do strength training - Father had chronic kidney disease and was recommended dialysis. - No history of leg swelling. Past Medical History EMR: Past Medical History: Diagnosis Date Gastroesophageal reflux disease History of chronic obstructive airway disease Hypercholesterolemia Renal insufficiency Rupture of right Achilles tendon Tubular adenoma Zenker's diverticulum Past Surgical History No past surgical history on file. Family History No family history on file. Brother has elevated creatinine. Uncle required dialysis at age 87 and he had heartfailure Social History Social History Tobacco Use Smoking status: Never Smokeless tobacco: Never Substance Use Topics Alcohol use: Not on file Review of Systems Constitutional: Negative for chills and fever. Respiratory: Negative for cough and shortness of breath. Cardiovascular: Negative for chest pain, palpitations and leg swelling. Gastrointestinal: Negative for abdominal pain, nausea and vomiting. Genitourinary: Negative for dysuria, frequency, hematuria and urgency. Medication List No current outpatient medications on file. No current facility-administered medications for this visit. Allergy List No Known Allergies Physical Exam BP 104/72 Pulse 72 Wt 156 lb (70.8 kg) SpO2 97% BMI 23.04 kg/m?? Vitals reviewed. Constitutional: No distress. Cardiovascular: Normal rate, regular rhythm and normal heart sounds. He exhibits no edema. Pulmonary/Chest: Effort normal and breath sounds normal. No respiratory distress. Abdominal: Soft. There is no abdominal tenderness. No hernia. Skin: Skin is warm and dry. Psychiatric: He has a normal mood and affect. His behavior is normal. Labs No lab exists for component: LABALBU No lab exists for component: PTHINTACT Renal US- 2020 ( ) RIGHT KIDNEY: 9.7 x 5.0 x 5.3 cm (SAG x AP x TRV). The kidney is normal in size, contour, and echogenicity. Renal cortical thickness is normal. No calculi or focal parenchymal lesions. No hydronephrosis. LEFT KIDNEY: 10.0 x 4.4 x 4.8 cm (SAG x AP x TRV). The kidney is normal in size, contour, and echogenicity. Renal cortical thickness is normal. No calculi or focal parenchymal lesions. No hydronephrosis. Assessment & Plan 1. Serum creatinine above reference range Middle aged man of decent with elevated creatinine. Serum creatinine remains stable ~ 1.5 () 24 hour urine collection revealed a creatinine clearance of 91 ml in November 2020 @ cr 1.46 NO significant proteinuria or hematuria - no evidence of active glomerular disease Blood pressure is excellent Renal ultrasound is unremarkable and no obstruction( 2020) as noted above. Plan - Repeat a 24-hour creatinine clearance test and Chem 7 to reassess kidney function. - No absolute indication for biopsy at this time - Will monitor creatinine in 12 months - Encouraged to increase fluid intake. Orders Placed This Encounter Cystatin C w/GFR Creatinine clearance, urine, 24 hour Basic Metabolic Panel Urinalysis with microscopic Protein, Total, Random Urine w/Creatinine (Protein/Creat Ratio) Urine Albumin / Creatinine Ratio Vitamin D 25 Hydroxy PTH, Intact Return in about 1 year (around 06/25/2025). Akin Cruz MD documented in this encounter Plan of Treatment Upcoming Encounters Date Type Department Care Team (Late st Contact Info) Description 07/01/2025 4:30 PM EST Office Visit [facility] [address] [place] [phone] Akin Cruz MD [address] [facility] [address] [place] [address] Scheduled Orders Name Type Priority Associated Diagnoses Orde r Schedule Cystatin C w/GFR Lab Routine Serum Creatinine Above Reference Range Expected: 06/25/2024, Expires: 07/23/2025 Creatinine clearance, urine, 24 hour Lab Routine Serum Creatinine Above Reference Range Expected: 06/25/2024, Expires: 06/25/2025 Basic Metabolic Panel Lab Routine Serum creatinine above reference range Expected: 06/25/2024, Expires: 07/23/2025 Urinalysis with microscopic Lab Routine Serum creatinine above reference range Expected: 06/25/2024, Expires: 07/23/2025 Protein, Total, Random Urine w/Creatinine (Protein/Creat Ratio) Lab Routine Serum creatinine above reference range Expected: 06/25/2024, Expires: 07/23/2025 Urine Albumin / Creatinine Ratio Lab Routine Serum creatinine above reference range Expected: 06/25/2024, Expires: 07/23/2025 Vitamin D 25 Hydroxy Lab Routine Serum creatinine above reference range Expected: 06/25/2024, Expires: 07/23/2025 PTH, Intact Lab Routine Serum creatinine above reference range Expected: 06/25/2024, Expires: 07/23/2025 documented as of this encounter Visit Diagnoses Diagnosis Serum creatinine above reference range- Primary documented in this encounter Care Teams Check Grader Relationship Specialty Start Date End Date Hernandez Ho DO [address] [place] [address] PCP - General Internal Medicine 05/27/24 documented as of this encounter
== END 2024-07-14 12:17 | disposition home or self-care (01) ==
LOC: HO.HMCSH 11:45
PROVIDERS: PCP Internal Medicine; Visit Provider Physician Assistant Medical
DX: J40 Bronchitis, not specified as acute or chronic (principal)